=== PATIENT | female | born 1975 | race African-American/Black ===

== ENCOUNTER 2021-05-19 10:19 | Emergency (ER) | payer OTHER ==
--- NOTE | 2021-05-19 12:28 | RAD REPORT ---
EXAM DESCRIPTION: RAD - Chest Pa And Lat (2 Views) - 05/19/2021 11:44 am CLINICAL HISTORY: CHEST PAIN COMPARISON: None TECHNIQUE: Frontal and lateral views of the chest were obtained. FINDINGS: The lungs are clear. Overlying breast soft tissue increases lower lung field density. Pac er/ defibrillator is in place. Heart size is upper normal. No vascular engorgement seen. No pleural e ffusion or pneumothorax seen. No acute bony finding noted. No aortic abnormality. IMPRESSION: No acute lung parenchymal process seen. Heart size is upper normal.
[2021-05-19 14:10] LABS: SARS-COV-2 RT PCR POSITIVE (NEGATIVE)
--- NOTE | 2021-05-19 14:23 | EDPHYS ---
Physician Documentation [facility] Name: Mercedes Chapman Age: 46 yrs Sex: Female : 1975 Arrival Date: 05/19/2021 Time: 10:22 Bed Waiting Private MD: JUAN Physician Olayinka Lemos HPI: 05/19 17:01 This 46 yrs old Black Female presents to ER via Ambulatory with complaints of kb Nausea/Vomiting/Diarrhea, Headache, Shortness Of Breath. 17:02 The patient or guardian reports cough, that is intermittent, described as moderate, kb difficulty breathing, flu symptoms, low-grade fever, myalgias. Onset: The symptoms/episode began/occurred 2 day(s) ago. Severity of symptoms: At their worst the symptoms were mild, moderate, in the emergency department the symptoms are unchanged. Modifying factors: The symptoms are alleviated by nothing, the symptoms are aggravated by nothing. Associated signs and symptoms: The patient has no apparent associated signs or symptoms. The patient has not experienced similar symptoms in the past. The patient has not recently seen a physician. ORIGINATION SPECIALIST: 10:51 LMP N/A - control method ap3 Historical: - Allergies: 10:47 No Known Allergies; ap3 - Home Meds: 10:47 Lasix Oral [Active]; Metoprolol Tartrate Oral [Active]; lisinopril oral [Active]; ap3 progesterone micronized oral [Active]; - PMHx: 10:47 Hypertrophic cardiomyopathy; ap3 - Immunization history:: Client reports having NOT received the Covid vaccine. - Social history:: Smoking status: Patient reports the use of cigarette tobacco products, cigars, a pack of black and milds/day, Patient uses alcohol, only on a social basis. ROS: 17:01 Abdomen/GI: Negative for abdominal pain, nausea, vomiting, diarrhea, and constipation. kb 17:01 Constitutional: Positive for body aches, chills, fatigue, malaise. 17:01 ENT: Positive for sinus congestion. 17:01 Respiratory: Positive for cough, Negative for dyspnea on exertion, hemoptysis, orthopnea, pleurisy, shortness of breath, sputum production, wheezing. 17:01 All other systems are negative. Exam: 17:01 Constitutional: This is a well developed, well nourished patient who is awake, alert, kb and in no acute distress. Head/Face: Normocephalic, atraumatic. ENT: Moist Mucous membranes Cardiovascular: Regular rate and rhythm with a normal S1 and S2. No gallops, murmurs, or rubs. No pulse deficits. Respiratory: Respirations even and unlabored. No increased work of breathing. Talking in full sentences Skin: Warm, dry with normal turgor. Normal color. MS/ Extremity: Pulses equal, no cyanosis. Neurovascular intact. Full, normal range of motion. Neuro: Awake and alert, GCS 15, oriented to person, place, time, and situation. Moves all extremities. Normal gait. Psych: Awake, alert, with orientation to person, place and time. Behavior, mood, and affect are within normal limits. Vital Signs: 10:45 Pulse 74; Resp 18; Temp 98.6(O); Pulse Ox 98% on R/A; Weight 117.93 kg; Height 5 ft. 6 ap3 in. (167.64 cm); 10:45 Body Mass Index 41.96 (117.93 kg, 167.64 cm) ap3 MDM: 10:47 Patient medically screened. kb 17:01 Data reviewed: vital signs, nurses notes. Data interpreted: Pulse oximetry: on room air kb is 98 %. Interpretation: normal. Counseling: I had a detailed discussion with the patient and/or guardian regarding: the historical points, exam findings, and any diagnostic results supporting the discharge/admit diagnosis, lab results, radiology results, the need for outpatient follow up, a family practitioner, to return to the emergency department if symptoms worsen or persist or if there are any questions or concerns that arise at home. 05/19 10:47 Order name: COVID-19/FLU A+B (Document "Date of Onset" if Symptomatic) 05/19 10:48 Order name: COVID-19/FLU A+B; Complete Time: 14:19 EDMS 05/19 10:47 Order name: EKG - Nurse/Tech kb 05/19 10:47 Order name: Chest Pa And Lat (2 Views) XRAY; Complete Time: 12:28 kb Administered Medications: No medications were administered Disposition: 05/20 12:52 Co-signature as Attending Physician, Olayinka Lemos MD I agree with the assessment and jay plan of care. Disposition Summary: 05/19/21 14:22 Discharge Ordered Location: Home kb Condition: Stable kb Diagnosis - Coronavirus infection, unspecified kb Followup: kb - With: Emergency Department - When: As needed - Reason: Worsening of condition Followup: kb - With: Private Physician - When: 2 - 3 days - Reason: Recheck today's complaints, Continuance of care, Re-evaluation by your physician Discharge Instructions: - Discharge Summary Sheet kb - Viral Respiratory Infection, [id number] kb - COVID-19 kb Forms: - Medication Reconciliation Form kb - Thank You Letter kb - Antibiotic Education kb - Prescription Opioid Use kb Signatures: Dispatcher [employer] EDMS Sherry Contreras, EXTENSION COURSE COORDINATOR-C EXTENSION COURSE COORDINATOR-Olayinka Dean MD MD cha Prokisch, Amanda RN RN ap3
--- NOTE | 2021-05-19 14:23 | ER ---
Nurse's Notes [facility] Name: Mercedes Chapman Age: 46 yrs Sex: Female : 1975 Arrival Date: 05/19/2021 Time: 10:22 Bed Waiting Private MD: Diagnosis: Coronavirus infection, unspecified Presentation: 05/19 10:45 Chief complaint: Patient states: she has cough, congestion, and a headache. patient ap3 states she is also short of breath even at rest. Patient states symptoms began 2 days ago. Coronavirus screen: congestion, cough unrelated to allergies, fatigue, headache, Client presents with at least one sign or symptom that may indicate coronavirus-19. Standard/surgical mask placed on the client. Provider contacted for isolation considerations. Ebola Screen: No symptoms or risks identified at this time. Initial Sepsis Screen: Does the patient meet any 2 criteria? No. Patient's initial sepsis screen is negative. Does the patient have a suspected source of infection? No. Patient's initial sepsis screen is negative. Risk Assessment: Do you want to hurt yourself or someone else? Patient reports no desire to harm self or others. Onset of symptoms was May 17, 2021. 10:45 Method Of Arrival: Ambulatory ap3 10:45 Acuity: NATHAN 3 ap3 Triage Assessment: 10:50 General: Appears in no apparent distress. Behavior is calm, cooperative, appropriate ap3 for age. Pain: Complains of pain in chest Pain currently is 3 out of 10 on a pain scale. Quality of pain is described as heavy. Neuro: Level of Consciousness is awake, alert, obeys commands, Oriented to person, place, time, situation, Appropriate for age. Respiratory: Reports shortness of breath at rest Airway is patent. GI: Reports diarrhea, nausea, vomiting. BAT BOY/GIRL: 10:51 LMP N/A - control method ap3 Historical: - Allergies: 10:47 No Known Allergies; ap3 - Home Meds: 10:47 Lasix Oral [Active]; Metoprolol Tartrate Oral [Active]; lisinopril oral [Active]; ap3 progesterone micronized oral [Active]; - PMHx: 10:47 Hypertrophic cardiomyopathy; ap3 - Immunization history:: Client reports having NOT received the Covid vaccine. - Social history:: Smoking status: Patient reports the use of cigarette tobacco products, cigars, a pack of black and milds/day, Patient uses alcohol, only on a social basis. Screenin:51 Abuse screen: Denies threats or abuse. Nutritional screening: No deficits noted. ap3 Tuberculosis screening: No symptoms or risk factors identified. Fall Risk None identified. Vital Signs: 10:45 Pulse 74; Resp 18; Temp 98.6(O); Pulse Ox 98% on R/A; Weight 117.93 kg; Height 5 ft. 6 ap3 in. (167.64 cm); 10:45 Body Mass Index 41.96 (117.93 kg, 167.64 cm) ap3 ED Course: 10:22 Patient arrived in ED. mr 10:37 Sherry Contreras FNP-C is [facility]. kb 10:37 Olayinka Lemos MD is Attending Physician. kb 10:47 Triage completed. ap3 10:51 Arm band placed on right wrist. ap3 10:52 Patient has correct armband on for positive identification. Pulse ox on. NIBP on. ap3 11:40 Chest Pa And Lat (2 Views) XRAY In Process Unspecified. EDMS 14:26 No provider procedures requiring assistance completed. Patient did not have IV access ap3 during this emergency room visit. Administered Medications: No medications were administered Outcome: 14:22 Discharge ordered by . kb 14:26 Discharged to home ambulatory. ap3 14:26 Condition: good 14:26 Discharge instructions given to patient, Instructed on discharge instructions, follow up and referral plans. Demonstrated understanding of instructions, follow-up care. 14:26 Patient left the ED. ap3 Signatures: Dispatcher [employer] EDMS Sherry Contreras FNP-C FNP-Ckb Rivera, Mary Elham Valente, RN RN ap3
[2021-05-19 14:46] VITALS: TEMP 98.6; O2SAT 98
== END 2021-05-19 14:26 | disposition home or self-care (01) ==
LOC: ER 10:19
DX: U07.1 COVID-19 (principal); Z72.0 Tobacco use
CPT/HCPCS: 0240U; 71046; 99283